=== PATIENT | male | born 1995 | race Caucasian/White ===

== ENCOUNTER 2018-02-24 21:32 | Emergency (ER) | payer SELFPAY ==
[~2018-02-24] VITALS: Ht 180.3 cm; Wt 69.2 kg
[2018-02-24 22:12] VITALS: BP 141/84; Ht 180.3 cm; Wt 69.2 kg
== END 2018-02-24 22:25 | disposition left against medical advice (07) ==
LOC: ED 21:32
DX: Z02.89 Encounter for other administrative examinations (principal)